=== PATIENT | female | born 1955 | race Caucasian/White ===

== ENCOUNTER 2020-07-24 19:52 | Emergency (ER) | payer MEDICARE, OTHER ==
[2020-07-24 20:40] LABS: EOS # 0.2 (0.04-0.40); EOS % 1.6 % (1.0-5.0); HEMATOCRIT 39.8 % (37.0-47.0); HEMOGLOBIN 13.6 g/dL (12.5-16.0); LYMPH# 1.8 (1.50-4.00); MEAN CELL VOLUME 98 fl (78-100); MEAN CORPUSCULAR HEMOGLOBIN 34 pg (27-31); MEAN CORPUSCULAR HGB CONC 34 g/dL (33-37); MEAN PLATELET VOLUME 9.1 fl (7.4-10.4); MONO # 0.6 (0.20-0.80); NEU # 6.9 (1.40-6.50); PLATELET COUNT 466 K/mm3 (130-400); RED BLOOD COUNT 4.06 M/mm3 (4.10-5.30); RED CELL DISTRIBUTION WIDTH 11.7 % (11.5-14.5); WHITE BLOOD COUNT 9.5 K/mm3 (4.8-10.8)
[2020-07-24 20:46] LABS: ALBUMIN 3.5 g/dL (3.4-4.8); SODIUM 132 mmol/L (136-145)
[2020-07-24 20:48] LABS: CALCIUM 9.1 mg/dL (8.3-10.5)
[2020-07-24 20:49] LABS: GLUCOSE 244 mg/dL (65-105); TOTAL PROTEIN 6.7 g/dL (6.2-8.1)
[2020-07-24 20:50] LABS: CARBON DIOXIDE 21 mmol/L (23-31); PARTIAL THROMBOPLASTIN TIME 28.7 SECONDS (21.0-32.0); PROTHROMBIN TIME 13.2 SECONDS (9.0-12.0)
[2020-07-24 20:51] LABS: TOTAL BILIRUBIN 0.6 mg/dL (0.2-1.2)
[2020-07-24 20:54] LABS: AST-SGOT 16 U/L (5-34); POTASSIUM 2.8 mmol/L (3.5-5.1)
[2020-07-24 21:03] LABS: TROPONIN-I < 0.03 ng/mL (<0.030)
[2020-07-24 21:15] LABS: MAGNESIUM 1.41 mg/dL (1.60-2.60)
[2020-07-24 21:18] LABS: ALT/SGPT < 6 U/L (0-55)
[2020-07-24 21:27] LABS: URINE APPEARANCE CLEAR; URINE BILIRUBIN NEGATIVE (NEGATIVE); URINE COLOR YELLOW; URINE GLUCOSE NEGATIVE (NEGATIVE); URINE KETONE NEGATIVE (NEGATIVE); URINE NITRATE NEGATIVE (NEGATIVE); URINE PROTEIN(semi-quant) 3+ mg/dL (NEGATIVE); URINE UROBILINOGEN NORMAL (NORMAL)
[2020-07-24 21:28] LABS: URINE BLOOD TRACE (NEGATIVE); URINE LEUKOCYTE ESTERASE NEGATIVE (NEGATIVE); URINE MUCUS PRESENT (NOT PRESENT); URINE WBC 0-1 /hpf (0-3)
[2020-07-24] MEDS ORDERED: HYDROXYUREA500 M1 PO (22:38)
[2020-07-24] MEDS ORDERED: FAMOTIDINE20 MG PO (22:38)
[2020-07-24] MEDS ORDERED: GLIMEPIRIDE4 MG PO (22:42)
[2020-07-24] MEDS ORDERED: ISOPTIN SR120 MG PO (22:42)
[2020-07-24] MEDS ORDERED: CELEXA 20MG20 MG/TA1 PO (22:42)
[2020-07-24] MEDS ORDERED: LEVOTHYROXINE100 MC1 PO (22:42)
[2020-07-24] MEDS ORDERED: GLUCOPHAGE500 MG/TAB PO (22:43)
[2020-07-24] MEDS ORDERED: IRBESARTAN300 MG PO (22:43)
[2020-07-24] MEDS ORDERED: LIPITOR 80MG80 MG PO (22:43)
[2020-07-24] MEDS ORDERED: NORVASC 10MG10 MG PO (22:43)
[2020-07-24] MEDS ORDERED: ADULT ASPIRIN R81 MG PO (22:59)
[2020-07-24 23:50] VITALS: BP 196/105
== END 2020-07-24 23:50 | disposition short-term general hospital (02) ==
LOC: ED 19:52
PROVIDERS: Internal Medicine; Nurse Practitioner
DX: E23.7 Disorder of pituitary gland, unspecified (principal); E11.65 Type 2 diabetes mellitus with hyperglycemia; R41.82 Altered mental status, unspecified; K59.00 Constipation, unspecified; E87.6 Hypokalemia; E87.1 Hypo-osmolality and hyponatremia; I10 Essential (primary) hypertension; Z88.0 Allergy status to penicillin; Z79.84 Long term (current) use of oral hypoglycemic drugs; Z79.82 Long term (current) use of aspirin; Z79.899 Other long term (current) drug therapy; Z20.822 Contact with and (suspected) exposure to COVID-19
CPT/HCPCS: J2405; J3010; J3475; J3480; J7030; Q9967

== ENCOUNTER 2020-08-15 13:48 | Outpatient (RCR) | payer MEDICARE, OTHER ==
[~2020-08-15 13:48] MED LIST: ADULT ASPIRIN R81 MG PO; CELEXA 20MG20 MG/TA1 PO; FAMOTIDINE20 MG PO; GLIMEPIRIDE4 MG PO; GLUCOPHAGE500 MG/TAB PO; HYDROXYUREA500 M1 PO; IRBESARTAN300 MG PO; ISOPTIN SR120 MG PO; LEVOTHYROXINE100 MC1 PO; LIPITOR 80MG80 MG PO; NORVASC 10MG10 MG PO
== END 2020-11-13 ==
LOC: PT
DX: G93.41 Metabolic encephalopathy (principal)

== ENCOUNTER 2020-11-16 11:00 | Outpatient (RCR) | payer MEDICARE, OTHER | END 2020-11-23 13:30 | disposition still patient (30) | LOC: PT 11:00 | DX: G93.41 Metabolic encephalopathy (principal) ==